=== PATIENT | female | born 1960 | race Caucasian/White ===

== ENCOUNTER 2025-03-25 03:57 | Emergency (ER) | payer OTHER, SELFPAY ==
[2025-03-25 03:59] VITALS: BP 148/73
--- NOTE | 2025-03-25 05:19 | ED.GENMED ---
History of Present Illness
General
Chief Complaint: Abdominal Symptoms
Source: patient
Exam Limitations: none
Time Seen by Provider: 03/25/25 04:20
Nursing documentation reviewed up to this point in time: agreed with
History of Present Illness
History of Present Illness:
Note:
CHIEF COMPLAINT(S)
Loose stools and gastrointestinal discomfort.
HISTORY OF PRESENT ILLNESS
The patient is a 64-year-old female who presented with complaints of loose stools. She mentioned experiencing these gastrointestinal symptoms following a recent increased intake of bowel preparation agents, including MiraLAX and Dulcolax. The
symptoms started after surgery prior to arrival. She is not currently taking any blood thinners and has no additional concerns at this time. The patient confirmed she uses these medications as needed for gastrointestinal relief and is adhering to
the schedule provided for their use.
MEDICATIONS
The patient is currently taking MiraLAX and Dulcolax as bowel preparation agents. She was advised to use these medications as directed. It was recommended that she take magnesium citrate upon returning home, using half initially and the remainder if
the desired bowel movement is not achieved after six hours.
PHYSICAL EXAM
General: Alert, no acute distress.
Skin: Warm, dry.
Head: Normocephalic, atraumatic.
Neck: Supple, trachea midline.
Eyes, Ears, Nose, and Throat: Oral mucosa moist.
Cardiovascular: Normal peripheral perfusion, No edema.
Respiratory: Respirations are non-labored.
Gastrointestinal: Abdomen nondistended, good bowel sounds
Back: Normal range of motion, Normal alignment.
Musculoskeletal: Normal range of motion, normal strength.
Neurological: Alert and oriented to person, place, time, and situation, No focal neurological deficit observed.
Psychiatric: Cooperative, appropriate mood & affect.
PLAN
1. Advise the patient to take magnesium citrate at home for relief from constipation, with specific directions on its administration.
2. Continue taking MiraLAX as needed for stool softening.
3. Educate the patient on the importance of monitoring bowel movements after administration of medications.
DIFFERENTIAL DIAGNOSIS
The Differential Diagnosis includes, in no particular order and is not limited to:
1. Diarrhea due to medication
2. Gastroenteritis
3. Irritable Bowel Syndrome
4. Inflammatory Bowel Disease
5. Malabsorption syndrome
6. Drug-induced gastrointestinal disturbance
7. Food intolerance
8. Colon cancer
9. Hyperthyroidism
10. Pseudomembranous colitis
Disposition:
SUMMARY OF ENCOUNTER
The patient, a 64-year-old female, presented to the emergency department with concerns of constipation following back surgery on March 18. She reported the inability to have a bowel movement since the surgery despite having used medications such as
senna, MiraLAX (polyethylene glycol), and Dulcolax (bisacodyl) suppository. She experienced mild abdominal discomfort and bloating. While in the emergency department, she had a bowel movement and expressed feeling tremendous relief afterward. Upon
physical examination, the patient appeared awake, alert, oriented, and in no acute distress. Her abdomen was noted to be soft, non-tender, and non-distended.
PLAN
The patient should continue with her current regimen of bowel medications if needed, ensuring proper hydration and adjustment of her diet to include fiber. She should monitor her bowel movements and seek further medical advice if her symptoms
persist or worsen.
PATIENT EDUCATION AND COUNSELING
The patient was counseled on the importance of maintaining adequate hydration and incorporating fiber into her diet to promote regular bowel movements. She was advised on the proper use of her medications and was instructed to monitor her symptoms,
particularly after the post-operative period.
MEDICAL DECISION MAKING
-Number and Complexity of Problems Addressed: Chronic conditions affecting care post-surgical constipation. Differential diagnosis includes drug-induced gastrointestinal disturbance, food intolerance, and potential obstruction.
-Data:
Category 1
Non-emergency department records reviewed, if applicable.
Category 2
My independent interpretation of the physical exam determined no signs of acute distress or significant abdominal abnormality.
-Risk:
Consideration of Admission/Observation: Escalation of care including admission/observation was considered given the complexity and risk of the patients presenting complaint, exam findings, and her underlying post-surgical state. However, ultimately,
the patient was assessed to be safe for outpatient management with close follow-up. Reasoning: Symptoms were alleviated with a bowel movement, examination was reassuring, and the patient was in agreement with discharge and reliable for follow-up.
DIAGNOSIS
Drug-induced constipation post-surgery (ICD-10: K59.09).
Phy Exam
General Physical Exam
General Presentation: well appearing and no apparent distress
General Skin: warm and dry
General Habitus: normal
General Mental: alert
General Hydration: appears well hydrated
ENT Exam
ENT Exam: EOMI, pharynx normal, neck supple and normocephalic
Eye Exam
Eye Exam: PERRL, cornea clear and conjunctiva normal
Cardiovascular Exam
Cardiovascular Exam: regular rate/rhythm, no edema, no murmur and normal peripheral pulses
Pulmonary Exam
Pulmonary Exam: lungs clear, no respiratory distress, no rales, no crackles, no rhonchi, no stridor, no wheezing and no cough
Gastrointestinal Exam
Gastrointestinal Exam: normal bowel sounds, non tender, soft, no organomegaly, no pulsatile mass and non distended
Neurological Exam
Neurological Exam: alert, oriented x3, no motor deficits and speech normal
Musculoskeletal Exam
Musculoskeletal Exam: full ROM and no edema
Skin Exam
Skin Exam: normal color, warm/dry, no rash and no petechia
Psychiatric Exam
Psychiatric Exam: normal mood/affect
Course
Orders/Labs/Results
Orders:
Orders
03/25/25 04:08
Obstruct Series W/PA Chest [CR Obstruct Series W/pa Chest] Urgent
Comment:
Reason For Exam: no BM x1 week
03/25/25 05:18
Magnesium Citrate [Citroma] 300 ml PO ONCE ONE
Vital Signs
Initial and Last Documented VS:
Initial Vital Signs
Temp Pulse Resp BP Pulse Ox
98.3 F 90 18 148/73 99
03/25/25 03:59 03/25/25 03:59 03/25/25 03:59 03/25/25 03:59 03/25/25 03:59
Last Documented Vital Signs
Temp Pulse Resp BP Pulse Ox
98.3 F 84 16 148/73 99
03/25/25 03:59 03/25/25 05:50 03/25/25 05:50 03/25/25 03:59 03/25/25 05:50
*Pulse Oximetry
SaO2: 99
Oxygen Mode of Delivery: Room air
Patient hypoxic: no
*Critical Care Note
Total Time (30-74mins, 75-104mins- exclusive of procedures): Not Applicable
ED Attending Note
-
Portions of this chart may have been created with voice recognition software.� Occasional wrong word or��sound alike� substitutions may have occurred due to the inherent limitations of voice recognition software.
Discharge Plan
Departure
Patient Disposition: Home (Routine Discharge)
Date of Disposition: 03/25/25
Time of Disposition: 05:18
Patient with high blood pressure during this ER visit?: Yes
Condition: Good
Discharge Problem:
Constipation
Referrals:
Traci Fernández CRNP [Family Provider, General]
Interventions
Interventions:
*Risk Screen - Suicide Last Done: 03/25/25 04:05
*General Assessment Last Done: 03/25/25 04:05
*Neglect/Abuse Screening Last Done: 03/25/25 04:05
*ED- Fall Risk Assessment Last Done: 03/25/25 04:23
*ED COVID-19 Vaccine History Last Done: 03/25/25 04:05
*Nursing Disposition Last Done: 03/25/25 05:55
TN-Jkrpov-Nulzzmslda Assessment Last Done: 03/25/25 04:23
Discharge Date and Time
Discharge Date/Time: 03/25/25 05:55
Print Language: MONGOLIAN
[2025-03-25] MEDS: CITROMA 300 ML PO (05:48)
== END 2025-03-25 05:55 | disposition home or self-care (01) ==
LOC: EMR 03:57
PROVIDERS: EMERGENCY PHYSICIAN Student in an Organized Health Care Education/Training Program; FAMILY PHYSICIAN Nurse Practitioner Family
DX: K59.00 Constipation, unspecified (principal); R03.0 Elevated blood-pressure reading, without diagnosis of hypertension; Z71.3 Dietary counseling and surveillance
CPT/HCPCS: 99283; 74022

== ENCOUNTER 2025-03-25 14:43 | Emergency (ER) | payer OTHER, SELFPAY ==
[2025-03-25 14:46] VITALS: BP 141/89
[2025-03-25 15:15] LABS: Hematocrit 26.6 % (37.0-47.0); Hemoglobin 9.1 g/dL (12.0-16.0); Mean Corp Hgb Conc. 34.2 g/dL (33.0-37.0); Mean Corpuscular Volume 91.4 fL (81.0-99.0); Nucleated Red Blood Cells % 0 %; Platelet Count 344 10^3/uL (130-400); Red Cell Dist. Width 12.4 % (11.5-14.5)
[2025-03-25 15:33] LABS: ALT (SGPT) 97 U/L (0-35); AST (SGOT) 74 U/L (14-36); Albumin 3.6 g/dl (3.5-5.0); Alkaline Phosphatase 325 U/L (38-126); Blood Urea Nitrogen 5 mg/dl (7-17); Calcium 8.6 mg/dl (8.4-10.2); Carbon Dioxide 28 mmol/L (22-30); Chloride 105 mmol/L (98-107); Glucose 121 mg/dl (70-99); Potassium 3.1 mmol/L (3.5-5.1); Sodium 138 mmol/L (135-145); Total Protein 6.0 g/dl (6.3-8.2); eGFR > 60.00
[2025-03-25 15:38] LABS: Troponin I 0.012 ng/ml
[2025-03-25 16:44] VITALS: BP 126/69
[2025-03-25 17:00] VITALS: BMI 24.4
[2025-03-25 17:02] VITALS: BP 98/73
--- NOTE | 2025-03-25 17:10 | EDRN ---
Pt assisted to recliner chair for comfort as so uncomfortable on stretcher.
--- NOTE | 2025-03-25 17:11 | ED.GENMED ---
History of Present Illness
General
Chief Complaint: Dizziness
Source: patient
Exam Limitations: none
Time Seen by Provider: 03/25/25 17:12
Nursing documentation reviewed up to this point in time: agreed with
History of Present Illness
History of Present Illness:
The patient is a pleasant 64-year-old female who recently underwent back surgery and states she has been suffering with constipation since her surgery. Patient has been taking multiple laxatives and was given mag citrate recently in the emergency
department earlier today. Patient reports that she has passed large bowel movements and is now having frequent episodes of watery brown nonbloody diarrhea. Patient states she feels lightheaded and weak. She feels extremely dehydrated. She denies
nausea, vomiting fevers and chills. She denies abdominal pain. Patient reports the dizziness feels like a sense of passing out. However, she has not passed out. Patient denies chest pain or shortness of breath.
Past History
Past History
ED Past Medical History: Other (Ulcerative colitis)
ED Past Surgical History: Orthopedic
Social History
Tobacco: Non-smoker
Alcohol: Other
Drug: None
Personal:
Living: with family
Employment: Other
Family History
Family History: Other
Review of Systems
Review of Systems
Allergies reviewed?: Yes
All Other Systems: ROS reviewed and negative except as documented in HPI and ROS
Constitutional: Reports fatigue
EENT: Reports no symptoms
Respiratory: Reports no symptoms
Cardiac: Reports no symptoms
ABD/GI: Reports diarrhea
: Reports no symptoms
Musculoskeletal: Reports no symptoms
Skin: Reports no symptoms
Neurological: Reports no symptoms
Endocrine: Reports no symptoms
Hematologic/Lymphatic: Reports no symptoms
Psychiatric: Reports no symptoms
Phy Exam
Physical Exam
Physical Exam:
Physical Exam
General: Patient appears tired but nontoxic
Neck: supple. no meningeal signs. normal psoterior pharynx
Heart: s1/s2 regular rate and rhythm, no murmur. equal radial pulses.
Lungs: no acute respiratory distress. clear bilaterally
Abdomen: Soft, nontender
Neuro: alert and oriented. no focal neurological deficits
Skin: no rash
Psychiatric: well kept. interactive and cooperative
Extremities: no edema.
Course
Orders/Labs/Results
Orders:
Orders
03/25/25 14:50
ECG [Electrocardiogram (*1)] Urgent
Reason for Study: Vertigo / Dizzy
03/25/25 14:51
EKG- Treatment ONCE
03/25/25 15:01
Complete Blood Count/With Diff Urgent
Comprehensive Metabolic Panel Urgent
Troponin I Urgent
03/25/25 17:24
0.9% Sodium Chloride 1000 ml [Nss] 1,500 ml IV BOLUS
03/25/25 17:25
Potassium Chloride Powder [Klor-Con] 40 meq PO NOW STA
03/25/25 17:29
Potassium Chloride [KCl] 20 meq 0.9% Sodium Chloride 150 ml [Nss] 150 ml IV NOW
03/25/25 17:46
Potassium Chloride [KCl] 40 meq PO NOW STA
03/25/25 17:47
Potassium Chloride [KCl] 40 meq .ROUTE .STK-MED ONE
03/25/25 17:56
CDIFF [C difficile Antigen & Toxins] Urgent
NELLI Source: Feces/Stool
Specimen Description:
Date Specimen was Collected: 03/25/25
Time Specimen was Collected: 17:48
Stool Culture Urgent
NELLI Source: Feces/Stool
Specimen Description:
Date Specimen was Collected: 03/25/25
Time Specimen was Collected: 17:48
03/25/25 19:49
Cyclobenzaprine HCl [Flexeril] 10 mg PO NOW STA
Abnormal Lab Results
03/25/25
15:01
RBC 2.91 L 10^6/uL
(4.20-5.40)
Hgb 9.1 L g/dL
(12.0-16.0)
Hct 26.6 L %
(37.0-47.0)
MCH 31.3 H pg
(27.0-31.0)
Abs Immat Gran (auto) 0.1 H 10^3/uL
(0-0.05)
Absolute Monos (auto) 0.9 H 10^3/uL
(0.1-0.6)
Immature Gran % 0.8 H %
(0-0.5)
Lymphocytes % 15.1 L %
(20.5-51.1)
Monocytes % 11.7 H %
(1.7-9.3)
Potassium 3.1 L mmol/L
(3.5-5.1)
BUN 5 L mg/dl
(7-17)
Glucose 121 H mg/dl
(70-99)
AST 74 H U/L
(14-36)
ALT 97 H U/L
(0-35)
Alkaline Phosphatase 325 H U/L
(38-126)
Total Protein 6.0 L g/dl
(6.3-8.2)
03/25/25 15:01
03/25/25 15:01
Vital Signs
Initial and Last Documented VS:
Initial Vital Signs
Temp Pulse Resp BP Pulse Ox
98.2 F 100 20 141/89 99
03/25/25 14:46 03/25/25 14:46 03/25/25 14:46 03/25/25 14:46 03/25/25 14:46
Last Documented Vital Signs
Temp Pulse Resp BP Pulse Ox
98.2 F 84 11 127/56 100
03/25/25 14:46 03/25/25 19:55 03/25/25 19:55 03/25/25 19:55 03/25/25 19:55
MDM/Problems Addressed
Differential Diagnosis Includes:
Acute dehydration, acute diarrhea related to laxative use, acute hypokalemia
MDM/Problems Addressed:
Patient presents with acute diarrhea and generalized weakness and lightheadedness
Chronic conditions affecting care:
Ulcerative colitis
Acute Exacerbation and/or Progression of Chronic Illness:
Patient may have acute exacerbation of ulcerative colitis, however, there is no blood or mucus in the stool so this is unlikely
*Pulse Oximetry
SaO2: 99
Oxygen Mode of Delivery: Room air
Patient hypoxic: no
Comment: 99% on room air
*EKG
Interpreted by ED Provider?: Yes
Interpretation: abnormal
Comparison EKG: no comparison EKG present
Rate: normal
Rhythm: sinus
[place]: normal axis
Interval: normal interval
QRS Pattern: normal QRS
Ischemia: non-specific ST changes
*Brush Holder Assembler Interpretation
Rate: normal
Interpretation: normal
Rhythm: sinus
*Critical Care Note
Total Time (30-74mins, 75-104mins- exclusive of procedures): Not Applicable
Data Reviewed
Review of Other/Old Records Reveals: Radiology Studies (Obstruction series reviewed from 03/25/2025 which shows mild fecal burden)
Source: patient
Patient Management
Social determinants of health affecting care: Living situation and Strong social support
Escalation/DeEscalation of care consider admission/obs:
Patient's diarrhea has substantially slowed down and patient reports she feels stronger and better. I suspect diarrhea is due to laxative use. Patient instructed to stop laxative. Patient able to drink fluids.
Update Note
Update Note:
Patient's diarrhea has slowed down substantially and she is feeling much better. Potassium replaced both IV and orally. Patient has no abdominal pain to suggest acute abdominal infection or surgical issue. Patient feels better and is happy to go
home.
ED Attending Note
-
Portions of this chart may have been created with voice recognition software.� Occasional wrong word or��sound alike� substitutions may have occurred due to the inherent limitations of voice recognition software.
Discharge Plan
Departure
Patient Disposition: Home (Routine Discharge)
Date of Disposition: 03/25/25
Time of Disposition: 19:49
Patient with high blood pressure during this ER visit?: No
Condition: Good
Covid-19: Not Applicable
Discharge Problem:
Acute dehydration, Acute hypokalemia, Hypokalemia due to loss of potassium
Instructions: Hypokalemia, Dehydration in adults - ED discharge instructions
Prescriptions:
New
potassium chloride [K-Tab] 20 mEq tablet extended release
20 meq PO DAILY 3 Days Qty: 3 0RF
Referrals:
Traci Fernández CRNP [Family Provider, General]
Activity Restrictions/Additional Instructions:
Your diarrhea is likely due to laxative use. Please stop using all laxatives. Please start taking the potassium as prescribed to you tomorrow for a total of 3 days.
Interventions
Interventions:
*Risk Screen - Suicide Last Done: 03/25/25 17:00
*General Assessment Last Done: 03/25/25 17:00
*Neglect/Abuse Screening Last Done: 03/25/25 17:00
*ED- Fall Risk Assessment Last Done: 03/25/25 17:00
*ED COVID-19 Vaccine History Last Done: 03/25/25 17:00
*Nursing Disposition Last Done: 03/25/25 20:10
ED- Neurological Assessment Last Done: 03/25/25 17:40
ED- Cardiac Assessment Last Done: 03/25/25 17:40
ED Swallowing Screen Last Done: 03/25/25 17:45
Discharge Date and Time
Discharge Date/Time: 03/25/25 20:10
Print Language: CZECH
--- NOTE | 2025-03-25 17:15 | EDRN ---
Pt up to BR at this time.
--- NOTE | 2025-03-25 17:25 | EDRN ---
Dr. Krueger in to see pt at this time.
--- NOTE | 2025-03-25 17:25 | EDRN ---
Pt had a dark brown mostly liquid stool w/pieces of food in it.
--- NOTE | 2025-03-25 17:28 | EDRN ---
Pharmacy called to mix and send potassium IV at this time.
[2025-03-25] MEDS: NSS 1500 IV (17:38)
[2025-03-25] MEDS: KCL 40 MEQ PO (17:49)
[2025-03-25] MEDS: KCL 160 MEQ IV (17:49)
[2025-03-25 18:00] VITALS: BP 123/73
--- NOTE | 2025-03-25 18:39 | EDRN ---
1 liter bag of NSS infused and 500 mL bag hung at this time for 1500 mL of IVF
[2025-03-25 19:00] VITALS: BP 135/65
[2025-03-25] MEDS: FLEXERIL 10 MG PO (19:53)
[2025-03-25 19:55] VITALS: BP 127/56
== END 2025-03-25 20:10 | disposition home or self-care (01) ==
LOC: EMR 14:43
PROVIDERS: Emergency Medicine; EMERGENCY PHYSICIAN Emergency Medicine; FAMILY PHYSICIAN Nurse Practitioner Family
DX: E86.0 Dehydration (principal); E87.6 Hypokalemia; K59.00 Constipation, unspecified
CPT/HCPCS: 99284; 96374; 96361 ×2; 80053; 84484; 85025; 87045; 87046; 87324; 87427; 87449; 93005